=== PATIENT | female | born 1995 | race Caucasian/White ===

== ENCOUNTER → 2018-03-01 | Outpatient (CLI) | payer BC, OTHER ==
[2018-03-01 18:12] LABS: CONTROL LINE HCG INT CTR LINE PRESENT; HCG, SERUM QUALITATIVE NEGATIVE (NEGATIVE)
== END ==
LOC: M LAB 17:38
DX: N92.6 Irregular menstruation, unspecified (principal)
CPT/HCPCS: 84703

== ENCOUNTER 2018-07-05 13:51 | Emergency (ER) | payer BC, OTHER ==
[~2018-07-05] VITALS: Ht 165.1 cm; Wt 53.9 kg
[2018-07-05 13:51] VITALS: BP 133/80
[2018-07-05] MEDS ORDERED: MICR1TAB18 PO (13:58)
--- NOTE | 2018-07-05 15:15 | REP ---
Right wrist: Four views. History: Right wrist pain. Findings: Four views of the right wrist demonstrate a benign bone island in the distal radius. Overall mineralization pattern is normal. No fracture or subluxation is seen. Impression: No acute bony abnormality. Electronically Signed by Car Romero MD 07/05/2018 03:15 P
[2018-07-05] MEDS ORDERED: IBUP-1022 PO (15:49)
== END 2018-07-05 16:00 | disposition home or self-care (01) ==
LOC: M ED 13:51
DX: S63.501A Unspecified sprain of right wrist, initial encounter (principal); X50.0XXA Overexertion from strenuous movement or load, initial encounter; Y92.39 Other specified sports and athletic area as the place of occurrence of the external cause; Y93.B9 Activity, other involving muscle strengthening exercises; Z79.3 Long term (current) use of hormonal contraceptives

== ENCOUNTER → 2018-09-07 | Outpatient (REF) | payer OTHER ==
[~2018-09-07] MED LIST: IBUP-1022 PO; MICR1TAB18 PO
[2018-09-07 10:27] LABS: URINE PREG TEST NEGATIVE (NEGATIVE)
[2018-09-07 10:30] LABS: APPEARANCE, URINE HAZY (CLEAR); BACTERIA, URINE AUTO 1+ (NEGATIVE); BILIRUBIN, URINE AUTO NEGATIVE (NEGATIVE); BLOOD, URINE BLOOD NEGATIVE (NEGATIVE); COLOR, URINE YELLOW (YELLOW); GLUCOSE, URINE (UA) AUTO 1+ mg/dL (NEGATIVE); KETONE, URINE AUTO NEGATIVE (NEGATIVE); LEUKOCYTE ESTERASE, URINE AUTO NEGATIVE (NEGATIVE); MUCUS, URINE SMALL (NEGATIVE); NITRITE, URINE AUTO NEGATIVE (NEGATIVE); PROTEIN, URINE AUTO NEGATIVE (NEGATIVE); RBC, URINE AUTO 2 /HPF (0-3); SPECIFIC GRAVITY URINE AUTO 1.025 (1.002-1.035); SQUAMOUS EPITHELIAL CELL UR AU 9 /HPF (0-6); UROBILINOGEN, URINE AUTO 0.2 mg/dL (0.0-2.0); WBC, URINE AUTO 3 /HPF (0-3)
== END ==
LOC: M LAB REF 09:59
PROVIDERS: ATTEND Nurse Practitioner Women's Health
DX: R35.0 Frequency of micturition (principal); N92.6 Irregular menstruation, unspecified

== ENCOUNTER → 2018-09-14 | Outpatient (CLI) | payer BC, OTHER ==
[2018-09-14 10:29] LABS: HEMOGLOBIN A1c 5.2 %
== END ==
LOC: M LAB 09:31
DX: R81 Glycosuria (principal)

== ENCOUNTER → 2018-09-17 | Outpatient (CLI) | payer BC, OTHER ==
[2018-09-17 08:50] LABS: CHOLESTEROL RISK RATIO 2.887 (<5)
== END ==
LOC: M LAB 07:39
DX: Z00.00 Encounter for general adult medical examination without abnormal findings (principal)

== ENCOUNTER → 2019-01-28 | Outpatient (REF) | payer BC, OTHER ==
[~2019-01-28] MED LIST changes: +CETI5SOL3 PO; +CHOL100029 PO
[2019-01-28 13:45] LABS: APPEARANCE, URINE CLEAR (CLEAR); BACTERIA, URINE AUTO 1+ (NEGATIVE); BILIRUBIN, URINE AUTO NEGATIVE (NEGATIVE); BLOOD, URINE BLOOD 1+ (NEGATIVE); COLOR, URINE STRAW (YELLOW); GLUCOSE, URINE (UA) AUTO NEGATIVE (NEGATIVE); KETONE, URINE AUTO NEGATIVE (NEGATIVE); LEUKOCYTE ESTERASE, URINE AUTO NEGATIVE (NEGATIVE); NITRITE, URINE AUTO NEGATIVE (NEGATIVE); PROTEIN, URINE AUTO NEGATIVE (NEGATIVE); RBC, URINE AUTO 1 /HPF (0-3); SPECIFIC GRAVITY URINE AUTO 1.004 (1.002-1.035); SQUAMOUS EPITHELIAL CELL UR AU 0 /HPF (0-6); UROBILINOGEN, URINE AUTO 0.2 mg/dL (0.0-2.0); WBC, URINE AUTO 14 /HPF (0-3)
== END ==
LOC: M LAB REF 12:12
PROVIDERS: ATTEND Nurse Practitioner Women's Health
DX: R30.0 Dysuria (principal)

== ENCOUNTER 2019-01-30 15:14 | Emergency (ER) | payer BC, OTHER ==
[~2019-01-30] VITALS: Ht 165.1 cm; Wt 53.2 kg
[~2019-01-30 15:14] MED LIST changes: -CETI5SOL3 PO; -CHOL100029 PO
[2019-01-30] MEDS ORDERED: CHOL100029 PO (15:52)
[2019-01-30] MEDS ORDERED: CETI5SOL3 PO (15:52)
[2019-01-30 17:00] VITALS: BP 130/94
== END 2019-01-30 17:07 | disposition home or self-care (01) ==
LOC: M ED 15:14
DX: R31.29 Other microscopic hematuria (principal); Z79.899 Other long term (current) drug therapy; Z79.3 Long term (current) use of hormonal contraceptives

== ENCOUNTER 2019-02-07 09:58 | Emergency (ER) | payer OTHER, BC ==
[~2019-02-07] VITALS: Ht 165.1 cm; Wt 54.5 kg
[~2019-02-07 09:58] MED LIST changes: +CETI5SOL3 PO; +CHOL100029 PO
[2019-02-07] MEDS ORDERED: IBUPROFEN 400 MG TAB PO ONE (10:45)
[2019-02-07 11:29] VITALS: BP 124/85
== END 2019-02-07 11:30 | disposition home or self-care (01) ==
LOC: M ED 09:58
DX: S46.811A Strain of other muscles, fascia and tendons at shoulder and upper arm level, right arm, initial encounter (principal); W22.8XXA Striking against or struck by other objects, initial encounter; Y92.89 Other specified places as the place of occurrence of the external cause; Y99.0 Civilian activity done for income or pay; I47.1 Supraventricular tachycardia; J30.2 Other seasonal allergic rhinitis; Z79.899 Other long term (current) drug therapy; Z79.3 Long term (current) use of hormonal contraceptives

== ENCOUNTER → 2019-05-07 | Outpatient (CLI) | payer BC, OTHER ==
[2019-05-07 15:19] LABS: HCG, SERUM QUALITATIVE NEGATIVE (NEGATIVE)
== END ==
LOC: M LAB 14:15
PROVIDERS: ATTEND Nurse Practitioner Women's Health
DX: N92.6 Irregular menstruation, unspecified (principal)

== ENCOUNTER → 2020-07-27 | Outpatient (CLI) | payer BC, OTHER ==
--- NOTE | 2020-07-28 08:19 | REP ---
INDICATION: LUMBAR RADICULOPATHY. COMPARISON: None. TECHNIQUE: Sagittal T1, T2, STIR images obtained. Axial T1 and T2 weighted images of the lumbar spine obtained. FINDINGS: On the sagittal T2 weighted images, there is only minimal degenerative disc disease. Vertebral heights and disc heights are overall preserved. No malalignments. Conus ends normally at L1 level. On the sagittal imaging, no significant canal stenosis is noted. No evidence of disc herniation. On the STIR images, no significant stir signal abnormality to suggest soft tissue or ligamentous injury. IMPRESSION: No acute findings. No significant canal or foraminal stenosis. Minimal degenerative disc disease. No evidence of a disc herniation. <Electronically signed by Brian Moreno > 07/28/20 0815
== END ==
LOC: M RAD 16:06
PROVIDERS: ATTEND Chiropractor
DX: M54.41 Lumbago with sciatica, right side (principal); M99.03 Segmental and somatic dysfunction of lumbar region

== ENCOUNTER 2020-10-26 10:46 | Emergency (ER) | payer BC, OTHER ==
[~2020-10-26] VITALS: Ht 165.1 cm; Wt 55.7 kg
[2020-10-26 12:17] LABS: BASO % 0.3 % (0.0-1.0); EOS # 0.1 10^3/uL (0.0-0.5); EOS % 0.8 % (0.0-3.0); HEMATOCRIT 43.9 % (36.0-47.0); HEMOGLOBIN 14.7 g/dl (12.0-15.5); LYMPH # 2.2 10^3/uL (1.5-5.0); LYMPH % 36.1 % (24.0-44.0); MEAN CORPUSCULAR HEMOGLOBIN 27.9 pg (27.0-33.0); MEAN CORPUSCULAR HGB CONC 33.5 g/dl (32.0-36.5); MEAN CORPUSCULAR VOLUME 83.3 fl (80.0-96.0); MONO # 0.5 10^3/uL (0.0-0.8); MONO % 8.1 % (2.0-8.0); NEUTROPHILS # 3.2 10^3/uL (1.5-8.5); NEUTROPHILS % 54.4 % (36.0-66.0); PLATELET COUNT, AUTOMATED 263 10^3/uL (150-450); RED BLOOD COUNT 5.27 10^6/uL (4.00-5.40)
[2020-10-26 12:52] LABS: HCG, SERUM QUALITATIVE NEGATIVE (NEGATIVE)
[2020-10-26 12:55] LABS: ALBUMIN 4.6 GM/DL (3.2-5.2); ALT/SGPT 28 U/L (12-78); BILIRUBIN,DIRECT 0.1 MG/DL (0.0-0.2); BILIRUBIN,TOTAL 0.5 MG/DL (0.2-1.0); BLOOD UREA NITROGEN 10 MG/DL (7-18); CALCIUM LEVEL 9.7 MG/DL (8.5-10.1); CARBON DIOXIDE LEVEL 30 MEQ/L (21-32); CHLORIDE LEVEL 104 MEQ/L (98-107); CK-MB VALUE MASS < 1.0 NG/ML (<3.6); CPK CREATINE PHOSPHOKINASE 93 U/L (26-192); CREATININE FOR GFR 0.58 MG/DL (0.55-1.30); FREE T4 1.14 NG/DL (0.76-1.46); GLOMERULAR FILTRATION RATE > 60.0 (>60); GLUCOSE, FASTING 94 MG/DL (70-100); MAGNESIUM LEVEL 2.3 MG/DL (1.8-2.4); MB/CK RELATIVE INDEX 1.08 (< OR =4); PHOSPHORUS LEVEL 3.1 MG/DL (2.5-4.9); POTASSIUM SERUM 3.7 MEQ/L (3.5-5.1); SODIUM LEVEL 141 MEQ/L (136-145); THYROID STIMULATING HORMONE 0.823 uIU/ML (0.358-3.740); TOTAL PROTEIN 8.1 GM/DL (6.4-8.2); TROPONIN I < 0.02 NG/ML (< 0.10)
[2020-10-26 15:31] VITALS: BP 116/72
== END 2020-10-26 15:37 | disposition home or self-care (01) ==
LOC: M ED 10:46
DX: R00.2 Palpitations (principal); Z79.899 Other long term (current) drug therapy

== ENCOUNTER 2021-02-04 07:08 | Emergency (ER) | payer BC, OTHER ==
[~2021-02-04] VITALS: Ht 165.1 cm; Wt 54.5 kg
--- OUTSIDE RECORDS SUMMARY | 2021-02-04 07:12 | CCD | Continuity of Care Document ---
Author Author Holter/Event/Telemetry, Daysi Khalil Organization Unknown Address [address] [facility], [facility] [place] [address] Phone [phone] Care Team Providers Care Affiliate Marketing Specialist Name Role Phone Gretel Ybarra Agapito FARIA AUTM [phone] Anna Voss MD AUTM [phone] Problems Active Problems Provider Date Palpitations Dave Allred MD Onset: 11/25/2020 Paroxysmal supraventricular tachycardia Dave Allred MD Onset: 11/25/2020 Social History Type Date Description Comments Sex Unknown ETOH Use Rarely consumes alcohol Tobacco Use Start: Unknown Patient has never smoked Smoking Status Reviewed: 11/25/20 Patient has never smoked Exercise Type/Frequency Walks daily 1-2 mile s Exercise Limitations Joint Pain right knee Allergies, Adverse Reactions, Alerts Description No Known Drug Allergies Medications Active Medications SIG Qnty Indications Ordering Provide r Date Vitamin D 125mcg (5000 Ut) Capsule s 1 by mouth daily Unknown 11/24/2020 Osteo Bi-Flex Advanced Triple Strength Tablets 1 by mouth daily Unknown 11/24/2020 19 Tablets 1 by mouth every day Unknown 11/24/2020 Hair/Skin/Nails Capsules 1 by mouth daily Unknown 11/24/2020 Melatonin 10mg Capsules 1 by mouth once daily at bedtime as needed Unknown 11/24 Cetirizine HCL 10mg Tablets 1 by mouth every day Unknown 11/24/2020 Ashwagandha 500mg Capsules 1 by mouth once weekly Unknown 11/24/2020 Immunizations Description No Information Available Vital Signs Date Vital Result Comment 11/25/2020 8:11am Weight 119.00 lb Height 65 inches 5'5" BMI (Body Mass Index) 19.8 kg/m2 Heart Rate 83 /min BP Systolic Sitting 112 mmHg Omron, adult cuff/Ra BP Diastolic Sitting 71 mmHg Omron, adult cuff/R a Results Test Acquired Date Facility Test Result H/L Range Note CMP 10/26/2020 [facility] - not interfaced (315)- - Albumin Serum/Plasma 4.6 Alt - SGPT 28 Calcium Ser/Plasma Mass/Vol 9.7 Carbon Dioxide Ser/Plasm 30 Chloride Serum/Plasma 104 Alkaline Phosphatase 77 Potassium 3.7 Protein Total 8.1 Sodium 141 Ast - Sgot 22 BUN - Urea Nitrogen 10 Glucose 96 70-100 Creatinine For GFR 0.58 CPK & CPK MB 10/26/2020 [facility] - not interfaced (315)- - CPK 93 CPK-MB <1.08 Laboratory test finding 10/26/2020 [facility] - not interf aced (315)- - Magnesium Level 2.3 1.8-2.4 Troponin <0.02 Thyroid Stimulating Hormone 0.823 Free T4 1.14 CBC without Differential 10/26/2020 [facility] - not inter faced (315)- - White Blood Count 6.0 4.0-10.0 Red Blood Count 5.27 4.00-5.40 Platelets 263 150-450 Hemoglobin 14.7 Hematocrit 43.9 CBC without Differential 10/14/2020 [facility] (315)- - White Blood Count 5.80 4.3-10.9 Red Blood Count 4.76 4.70-6.20 Platelets 257 130-400 Hemoglobin 13.4 13.0-17.0 Hematocrit 39.2 39.0-50.0 Laboratory test finding 10/14/2020 [facility] (315)- - Thyroid Stimulating Hormone 0.720 Lipid Profile/Cardiac Risk Pro 10/14/2020 [facility] (315)- - Triglycerides 47 Cholesterol 3.15 Low 120-200 HDL 47 40-60 LDL Cholesterol 87.0 Chol/HDL Ratio -- BMP 10/14/2020 [facility] (315)- - Calcium Ser/Plasma Mass/Vol 9.6 Sodium 142 Carbon Dioxide Ser/Plasm 30.0 Chloride Serum/Plasma 104 Potassium 3.80 Glucose 90 70-100 Blood Urea Nitrogen 6 5-21 Creatinine 0.72 0.6-1.5 G F R 117 Procedures Date Code Description Status 12/25/2020 97853 Multi Event Recorder Interpretat ion Completed 12/25/2020 07860 Multi Event Recorder Hookup Comp leted 11/25/2020 05137 Office/Outpatient New Moderate M DM 45-59 Minutes Completed 11/25/2020 97004 ECG 12-Lead Completed Medical Devices Description No Information Available Encounters Type Date Location Provider Dx Diagnosis Office Visit 11/25/2020 8:00a Main Office Dave Allred MD I47.1 Supraventricular tachycardia R00.2 Palpitations Assessments Date Code Description Provider 12/25/2020 R00.2 Palpitations Holter/Event/Tel emetry 11/25/2020 I47.1 Supraventricular tachycardia Deven marilee Allred MD 11/25/2020 R00.2 Palpitations Dave Allred MD Plan of Treatment Future Appointment(s):* 02/11/2021 9:00 am - ECHO at Main Office 11/25/2020 - Dave Allred MD* I47.1 Supraventricular tachycardia* New Xrays:* US Echocardiogram Transthoracic W Doppler And Color Flow, Scheduled: 02/11/21 * Referral:* Anna Voss MD, Cardiac Electrophyslgy * Recommendations:* Patient was encouraged to purchase [employer] to record episodes of palpitations on her own. Further evaluation with a 30 day event monitor. Further evaluation with an echocardiogram Doppler. PSVT was explained to the patient. Electrophysiology study and RF ablation of PSVT was explained to the patient. The probability of cure of PSVT with RF ablation was "the patient as 95-9 9% depending on which type of PSVT is present. Patient was agreeable to be seen by rn correctional with the intent of EPS +/- RF ablation. She was referred to rn correctional Dr. Anna Voss in [place]. She was encouraged to decrease caffeine intake. * R00.2 Palpitations * All * Follow up:* Further follow-up, if any, depending upon results of cardiac testing. Functional Status Functional Condition Comment Date Status Independent with all ADL's Activ e Mental Status Description No Information Available Referrals Refer to Reason for Referral Status Appt Date Anna Voss MD 25 yo woman with documented PSVT since 14 yo. Please consider EPS/RFA. Thanks!! Closed [facility] [address] [place] [address] [phone]
--- OUTSIDE RECORDS SUMMARY | 2021-02-04 07:12 | CCD | Continuity of Care Document ---
Author Author Holter/Event/Telemetry, Daysi Khalil Organization Unknown Address [address] [facility], [facility] [place] [address] Phone [phone] Care Team Providers Care Tap Builder Name Role Phone Gretel Ybarra Agapito FARIA AUTM [phone] Anna Voss MD AUTM [phone] Problems Active Problems Provider Date Palpitations Dave [...] Test Result H/L Range Note CMP 10/26/2020 [facility] - not interfaced (315)- - Albumin Serum/Plasma 4.6 Alt - SGPT 28 Calcium Ser/Plasma Mass/Vol 9.7 Carbon Dioxide Ser/Plasm 30 Chloride Serum/Plasma 104 Alkaline Phosphatase 77 Potassium 3.7 Protein Total 8.1 Sodium 141 Ast - Sgot 22 BUN - Urea Nitrogen 10 Glucose 96 70-100 Creatinine For GFR 0.58 CPK & CPK MB 10/26/2020 [facility] - not interfaced (315)- - CPK 93 CPK-MB <1.08 Laboratory test finding 10/26/2020 [facility] - not interf aced (315)- - Magnesium Level 2.3 1.8-2.4 Troponin <0.02 Thyroid Stimulating Hormone 0.823 Free T4 1.14 CBC without Differential 10/26/2020 [facility] - not inter faced (315)- - White [...] 117 Procedures Date Code Description Status 12/25/2020 46883 Multi Event Recorder Interpretat ion Completed 12/25/2020 19482 Multi Event Recorder Hookup Comp leted 11/25/2020 75859 Office/Outpatient New Moderate M DM 45-59 Minutes Completed 11/25/2020 94153 ECG 12-Lead Completed Medical Devices Description No Information Available Encounters Type Date Location Provider Dx Diagnosis Office Visit 11/25/2020 8:00a Main Office Dave Allred MD I47.1 Supraventricular tachycardia R00.2 Palpitations Assessments Date Code Description Provider 12/25/2020 R00.2 Palpitations Holter/Event/Tel emetry 11/25/2020 I47.1 Supraventricular tachycardia Deven marilee Alrled MD 11/25/2020 R00.2 Palpitations Dave Allred MD [...] Patient was agreeable to be seen by benefits consultant with the intent of EPS +/- RF ablation. She was referred to benefits consultant Dr. Anna Voss in [place]. She was encouraged to decrease caffeine intake. [...] 14 yo. Please consider EPS/RFA. Thanks!! Closed [facility] [address] [place] [address] [phone]
--- OUTSIDE RECORDS SUMMARY | 2021-02-04 07:13 | CCD ---
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 PlM5YgGK07mHbqazRhYShrFF9YWT0iEJZxKRDZHY6SsDCfvO8wfzCbNVIwDHAYRxKeI55peBMaGYJlYS Q8QIWlEq1EGACzU4RokmWebMtmumAbEDTrNEQRMQ3BDSixxhFtxAZwyZbePW56nTcoMU4FHa1ULgNrIA 6cyi1JcUGtUt7PIMUzOl7STVXlMJDqOYZlCLC1MFXr HyItWQdkFARaESJkNZR2NKTkLKHsPM5RCoUkWQKnAABpFTgbIKPzOHOoqn4QCGKmRSRkDpfjJuIgKUJb KVLpIHhsBHVlTLSxWLhqKTUwRVPuJM9BGfZeEQQuMQS8ZgCpHYIyCFVpni0KMQIrBXXeEsa9UnAnEAWv ZJHfSCroOSGgNDS5YqV8NKXoSFReNF1HPkFsONBgGG H6BRokPPWcXCQsin4CVPFwMBMeOvR5GfRlXTEgDDIdMRbcHSFtFRR6UAy4SIPrVJJxSU1CCuXkQYIcLN t4NvPkFAXmSDGiur6VCBJiXTIsQGFbGkDgVXZqGQGxKZkoDPIwLQL2SxT0CPJkGHBlXD5JHpCkACMbPC CrCmPuWEAaBYEowv1KWJSsPLTxWPM1XfAfPGQkVKJo DIibRYVuTLFeWTF4XEAnHWVlAG6GSoKkVVTkUQTvEbtkZPStLVOqtu9CBDQyYZWgNwG9NmFkUAEmHVLd JYxgUURjEMR8FFgfAHDvZFHhFC7ZTfHkJYImNAasNRKsJOPbNSHzjh6KOUKtQQNaLVDiWiYbAUYyHBNb CUihWHMiTYY5YmGePNDzNCBmSU4CSaDkVZaaGPZBAj n3AKcdE7v5KEBvXt9MQ3Efn0ZqBxXnRYEGLAjyNO3iiiPaLFAdPf9OJ1zXAnb4THT7KxOkQdQjNNVrHr P4VHMnZfYfKlZbALn9JWI6Hj6eDLEbCvwbUULeTnS8BfBwEOn8VGT3JUO1NfE6MVC9RIsvLwPzJW0WPm 3FKpE4ICT7hGOzJo3HCVx0HJOSScRtVD0FZZa= ID Date Data Source [id number] 02/01/2021 06:36:34 AM EDT [facility] NT INFORMATIONPatient MRN Name Date of Age Gend*PT [id number] Raleigh Dexter 1995 25 years F HOPPT Location Admission Date/Time Visit ID Attending [id number] 02/01/21 0607 --- Anna Voss MD([id number]) EPI ID CSN Admitting Provider [id number] Anna Voss MD([id number]) History and PhysicalPatient Name: Raleigh DexterDOB: 1995The patient has a history of SVT who presents for SVT qkbbsdqu04/18/2021ast Medical History:Diagnosis Date PSVT (paroxysmal supraventricular tachycardia)Past Surgical History:Procedure Laterality Date TONSILLECTOMY TUMOR REMOVAL precancerous tumors removed from foreheadNo medications prior to admission.ALLERGIES/SENSITIVITIES: Patient has no known drug allergies.Physical ExamGeneral: NADHEENT: NC/ATNeck: JVP FlatLungs: CTAHeart: [id number]: This is a 25 years female With a history of SVT who now presentsfor ablation. The difference between Reentrant tachycardia versus anectopic atrial tachycardia was also discussed. The possibility that thetachycardia may not be able to be ablated at this time was discussed. Procedurewas explained in detail. The need for sedation was also discussed. The risksincluding but not limited to vascular injury, perforation, pneumothorax,infection, tamponade, hematoma formation, stroke, respiratory failure, CHB anddeath were all explained. The patient is agreeable to proceed.Signature: Anna Voss MD, [facility], RSCardiac Electrophysiology and Arrhythmia ServiceDate: February 01, 2021Time: 6:36 AMThis document or parts of this document, were dictated using Demibook[employer]ware. A reasonable attempt at proofreading has been made to minimize errors.Please call with any questions or corrections. Name Value Range Interpretation Code Description Data Kelly rce(s) Supporting Document(s) ID Date Data Source [id number] 02/01/2021 06:49:16 AM EDT [facility] elena DWYER Name Value Range Interpretation Code Description Data Kelly rce(s) Supporting Document(s) POC [facility] <5.0 IU/L [facility] [place] INTERPRETATION:<5.0 NEGATIVE5.0- 25.0 INDETERMINATE>25.0 POSITIVELEVELS BETWEEN 5 AND 25 IU/L MAY INDICATEEARLY AND SHOULD BE REPEATED GARY BLOOD SAMPLE AFTER 48 HOURS.PERFORMED BY [facility] CLINICAL STA[facility] ID Date Data Source [id number] 01/27/2021 06:30:00 AM EDT [place] Name Value Range Interpretation Code Description Data Kelly rce(s) Supporting Document(s) SARS coronavirus 2 RNA [Presence] in Res piratory specimen by EDWIN with probe detection NOT DETECTED [facility] This lab was reported by [facility]. ID Date Data Source [id number] 01/28/2021 07:07:06 AM EDT [facility] [place] [facility] [place] Name Value Range Interpretation Code Description Data Kelly rce(s) Supporting Document(s) SPECIMEN DESCRIPTION [facility] [place] COVID 19 RESULT (NDET) [facility] [place] f [place] NEGATIVE COVID-19 RESULTS DONOT PRECLUDE COVID-2019 INFECTION ANDSHOULD NOT BE USED THE SOLE BASISFOR PATIENT MANAGEMENT DECISIONS. COMMENT [facility] THE [place] FDA HAS MADE THIS TEST AVAILABL EUNDER AN EMERGENCY USE AUTHORIZATION(EUA) FOR THE DETECTION AND/OR DIAGNOSISOF THE VIRUS THAT CAUSES COVID-19.THIS ASSAY AMPLIFIES AND DETECTS TARGETDNA USING HAND ENDBAND CUTTER- MEDIATEDAMPLIFICATIONTESTING PERFORMED ON Jumpstarter FIRST TEST [facility] [place] [facility] [place] SYMPTOMATIC [facility] of [place] Y DATE OF SYMPT ONSET [facility] [place] HOSPITALIZED [facility] [place] of [facility] ICU [facility] [place] [place] CONGREGATE CARE SET [facility] [place] [facility] [place] [facility] [place] ID Date Data Source [id number] 12/16/2020 01:57:49 PM EDT [facility] INFORMATIONPatient MRN Name Date of Age Gend*PT [id number] Raleigh Dexter 1995 25 years F ---PT Location Admission Date/Time Visit ID Attending Provider --- --- --- --- EPI ID CSN Admitting Provider [id number] ---[facility] [id number] [facility], [address] (First Floor)[place], [place] [address]Yu.: Fax: Jatient: Raleigh Dexter : 1995Date: 12/16/20CARDIOLOGY ELECTROPHYSIOLOGY TELEMEDICINE CONSULTPatient was identified by name and date of .Verbal consent was obtained from the patient for this telemedicine visit.Patient is aware of the risks, limitations, and benefits of a telemedicinevisit.This telemedicine assessment was conducted remotely with the assistance ofSKINNYprice communication technology. Telephone Only Codes [id number]: 21-30 minutesof medical discussion: Telephone Only .Subjective:I was asked by Dr. Elizabeth to consult on this 25 years female with SVTHISTORY OF PRESENT ILLNESS: Patient is a 25-year-old female with a history ofSVT which started at the age of 14. For many years the patient was placed on abeta-elvis without much effect. She states that the beta-elvis made hertired and did not really affect her SVT very well. She was having probably oneepisode of SVT a year recently however the frequency of SVTs has increased. Herepisodes last anywhere from 15 minutes to "hours "in duration. These typicallyoccur with exercise and she has palpitations associated with near syncope. Shedenies any shortness of breath. She denies any chest pain or syncope.Past medical history1. SVTFAMILY HISTORY: NoncontributorySOCIAL HISTORY: Patient is . She is currently in nursing schoolREVIEW OF SYSTEMS: Constitutional: Positive near syncope. Denies fever, chills,weight loss or gain. Eyes: Denies blindness. Cardiovascular: Positivepalpitations. Respiratory: Denies shortness of breath and dyspnea on exertion.GI: Denies abdominal pain, nausea or vomiting. : Denies dysuria or hematuria.Musculoskeletal: Negative lower extremity edema. Integumentary: Denies rash.Neurologic: Denies seizures. Psychiatric: Denies depression or an xiety.Hematologic: Denies anemia.No current outpatient medications on file.ALLERGIES: has no allergies on file.PREVIOUSLY USED ANTI ARRHYTHMIC DRUGS: NadololPOORLY TOLERATED MEDICATIONS: NadololObjective:PHYSICAL EXAMINATION: Deferred due to Telemedicine encounterSTUDIES REVIEWED: Referral recordsEKG: Deferred due to telemedicine encounter.Assessment/Plan:ASSESSMENT/PLAN: This is a 25 years female With a history of SVT. I had a longdiscussion with the patient regarding the anatomical and physiological basis ofAV node reentry, orthodromic AV reciprocating tachycardias, and focal atrialtachycardias. Based on the age of onset there is an 80% chance the patient'stachycardia represents an Orthodromic AV Reciprocating Tachycardia utilizing aconcealed accessory pathway, a 15% chance this represents typical AV nodalreentrant tachycardia, and a 5% chance this represents a focal atrialtachycardia. During our visit, the patient and I had a comprehensive discussionregarding arrhythmia management using principles of shared decision making.This included a discussion of antiarrhythmic medications including Class 1a,Class 1C, and Class III agents as well as both Class II and IV agents. Ireviewed the potentially life-threatening side effects of these medications,including but not limited to fatal tachyarrhythmias, bradycardia, hypotension,heart block, pulmonary toxicity, liver toxicity as well as thyroidabnormalities. We also reviewed the required monitoring of these medications.In addition we reviewed EP guided therapy, including the potential benefits andrisks of catheter ablation. These risks in clude but are not limited to ,myocardial infarction, stroke, cardiac perforation, vascular injury, hematomaformation, complete heart block, need for emergent open heart surgery,pneumothorax and tamponade. We discussed clinical observation with no therapy.I explained to the patient that the natural history of SVTs is for worsening ofsymptoms over the course of a lifetime. After reviewing all the options, thepatient clearly understands the issues related to our discussion. In additionwe did discuss the possibility that if this was a concealed accessory pathwaythe most common location is left free wall. I discussed the differentapproaches to her left free wall ablation, retrograde versus transseptal. Therisks of both were discussed with the patient and she fully understands.At this point the patient would like to proceed with ablation and if necessary atransseptal approach. She will be scheduled on an elective basisThis document or parts of this document, were dictated using [employer] Groupware. A reasonable attempt at proofreading has been made to minimize errors.Please call with any questions or corrections.I have spent 25 minutes with the patient, counseling/coordinating the patient'scare. I discussed the diagnosis of SVT and discussed Management option risksand benefitsFollow Up EP/RFSignature: Anna Voss MD, [facility], RSCardiac Electrophysiology and Arrhythmia ServiceDate: December 16, 2020Time: 1:47 PMThis document or parts of this document, were dictated using Demibooksware. A reasonable attempt at proofreading has been made to minimize errors.Please call with any questions or corrections. Name Value Range Interpretation Code Description Data Kelly rce(s) Supporting Document(s) ID Date Data Source [id number] 10/26/2020 01:11:00 PM EDT [facility] ([facility]) Name Value Range Interpretation Code Description Data Kelly rce(s) Supporting Document(s) Red Blood Count 5.27 4.00-5.40 [facility] ([facility]) White Blood Count 6.0 4.0-10.0 [facility] ([facility] Hemoglobin 14.7 [facility] ([facility]) Platelets 263 150-450 [facility] Hematocrit 43.9 [facility] (Card[facility]) ID Date Data Source [id number] 10/26/2020 01:11:00 PM EDT [facility] ([facility]) Name Value Range Interpretation Code Description Data Kelly rce(s) Supporting Document(s) Magnesium Level 2.3 1.8-2.4 [facility] ([facility]) Troponin Laboratory test result [facility] ([facility]) Thyroid Stimulating Hormone 0.823 ME [facility] ([facility]) Free T4 1.14 [facility] ([facility]) ID Date Data Source [id number] 10/26/2020 01:11:00 PM EDT [facility] ([facility]) Name Value Range Interpretation Code Description Data Kelly rce(s) Supporting Document(s) CPK-MB Laboratory test result [facility] ([facility]) Creatine kinase [Enzymatic activity/volume] in Serum or Plasma 93 [facility] ([facility]) ID Date Data Source [id number] 10/26/2020 01:11:00 PM EDT [facility] ([facility]) Name Value Range Interpretation Code Description Data Kelly rce(s) Supporting Document(s) Calcium [Mass/volume] in Serum or Plasma 9.7 [facility] ([facility]) Albumin [Mass/volume] in Serum or Plasma 4.6 [facility] ([facility]) Alanine aminotransferase [Enzymatic activity/volume] in Serum or Pl asma 28 [facility] ([facility]) Carbon dioxide, total [Moles/volume] in Serum or Plasma 30 [facility] ([facility]) Chloride [Moles/volume] in Serum or Plasma 104 [facility] ([facility]) Alkaline phosphatase [Enzymatic activity/volume] in Serum or Plasma 7 7 [facility] ([facility]) Potassium [Moles/volume] in Serum or Plasma 3.7 [facility] ([facility]) Aspartate aminotransferase [Enzymatic activity/volume] in Serum or Plasma 22 [facility] ([facility]) Protein [Mass/volume] in Serum or Plasma 8.1 [facility] ([facility]) Sodium 141 [facility] ([facility]) Urea nitrogen [Mass/volume] in Serum or Plasma 10 [facility] ([facility]) Glucose 96 70-100 [facility] ([facility]) Creatinine For GFR 0.58 [facility] (Car [facility]) ID Date Data Source [id number] 10/14/2020 08:37:00 AM EDT [facility] ([facility]) Name Value Range Interpretation Code Description Data Kelly rce(s) Supporting Document(s) Calcium [Mass/volume] in Serum or Plasma 9.6 [facility] ([facility]) Sodium 142 [facility] ([facility]) Chloride [Moles/volume] in Serum or Plasma 104 [facility] ([facility]) Carbon dioxide, total [Moles/volume] in Serum or Plasma 30.0 [facility] ([facility]) Glucose 90 70-100 [facility] ([facility]) Potassium [Moles/volume] in Serum or Plasma 3.80 [facility] ([facility]) Blood Urea Nitrogen 6 5-21 [facility] (Ca [facility]diology [facility]) Glomerular filtration rate/1.73 sq M.pre dicted [Volume Rate/Area] in Serum or Plasma by Creatinine-based formula (MDRD) 117 [facility] ([facility]) Creatinine 0.72 0.6-1.5 [facility] ([facility]) ID Date Data Source [id number] 10/14/2020 08:37:00 AM EDT [facility] Name Value Range Interpretation Code Description Data Kelly rce(s) Supporting Document(s) Cholesterol 3.15 120-200 [facility] ([facility]) HDL 47 40-60 [facility] Triglycerides 47 [facility] ([facility]) Cholesterol in LDL [Mass/volume] in Serum or Plasma by calculation 87 .0 [facility] ([facility]) Chol/HDL Ratio Laboratory [facility] ([facility]) ID Date Data Source [id number] 10/14/2020 08:37:00 AM EDT [facility] ([facility]) Name Value Range Interpretation Code Description Data Kelly rce(s) Supporting Document(s) Thyroid Stimulating Hormone 0.720 ME [facility] ([facility]) ID Date Data Source [id number] 10/14/2020 08:37:00 AM EDT [facility] ([facility]) Name Value Range Interpretation Code Description Data Kelly rce(s) Supporting Document(s) White Blood Count 5.80 4.3-10.9 [facility] ([facility]) Red Blood Count 4.76 4.70-6.20 [facility] ([facility]) Platelets 257 130-400 [facility] Hemoglobin 13.4 13.0-17.0 [facility] ([facility]) Hematocrit 39.2 39.0-50.0 [facility] ([facility]) ID Date Data Source [id number] 07/23/2020 06:39:00 PM EDT [facility] Name Value Range Interpretation Code Description Data Kelly rce(s) Supporting Document(s) SARS coronavirus 2 Ag Covid_negative [place] [facility] This lab was ordered by KATJA trujillo nd reported by [email or web address]. Procedure Social History Code Duration Value Status Description Data Source(s ) Smoking 11/25/2020 12:00:00 AM EDT Patient has never smoked co mpleted Patient has never smoked [facility] ([facility]) Vital Signs ID Date Data Source UNK Name Value Range Interpretation Code Description Data Source(s) Body height 65 [in_i] 65 [in_i] [facility] ([facility]) 5'5" Body mass index (BMI) [Ratio] 19.8 kg/m2 19.8 k g/m2 [facility] ([facility]) Heart rate 83 /min 83 /min [facility] ([facility]) Systolic blood pressure--sitting 112 mm[Hg] 112 mm[Hg] [facility] ([facility]) Omron, adult cuff/Ra Diastolic blood pressure--sitting 71 mm[Hg] 71 mm[Hg] [facility] ([facility]) Omron, adult cuff/Ra Body weight 119.00 [lb_av] 119.00 [lb_av] PANCHITO Dixon ([facility])
--- OUTSIDE RECORDS SUMMARY | 2021-02-04 07:13 | CCD | Continuity of Care Document ---
Author Organization Unknown Address Unknown Phone Unavailable Care Team Providers Care Real Estate Attorney Name Role Phone Carlos Centeno MD AUTM [phone] Gretel Ybarra AUTM [phone] Problems Active Problems Provider Date Paroxysmal supraventricular tachycardia Dave Allred MD Onset: 11/25/2020 Palpitations Dave Allred MD Onset: 11/25/2020 Social History Type Date Description Comments Sex Unknown ETOH Use Rarely consumes alcohol Tobacco Use Start: Unknown Patient has never smoked Exercise Type/Frequency Walks [...] 5'5" BMI (Body Mass Index) 19.8 kg/m2 Results Test Acquired Date Facility Test Result H/L Range Note CMP 10/26/2020 [facility] - not interfaced (532)- - Albumin Serum/Plasma 4.6 Alt - SGPT 28 Calcium Ser/Plasma Mass/Vol 9.7 Carbon Dioxide Ser/Plasm 30 Chloride Serum/Plasma 104 Alkaline Phosphatase 77 Potassium 3.7 Protein Total 8.1 Sodium 141 Ast - Sgot 22 BUN - Urea Nitrogen 10 Glucose 96 70-100 Creatinine For GFR 0.58 CPK & CPK MB 10/26/2020 [facility] - not interfaced (315)- - CPK 93 CPK-MB <1.08 Laboratory test finding 10/26/2020 [facility] - not interf aced (315)- - Magnesium Level 2.3 1.8-2.4 Troponin <0.02 Thyroid Stimulating Hormone 0.823 Free T4 1.14 CBC without Differential 10/26/2020 [facility] - not inter faced (315)- - [...] 0.72 0.6-1.5 G F R 117 Procedures Description No Information Available Medical Devices Description No Information Available Encounters Description No Information Available Assessments Date Code Description Provider 11/25/2020 R00.2 Palpitations Dave Allred MD 11/25/2020 I47.1 Supraventricular tachycardia Deven marilee Allred MD Plan of Treatment No Information Available Functional Status Functional Condition Comment Date Status Independent with all ADL's Activ e Mental Status Description No Information Available Referrals Description No Information Available
--- OUTSIDE RECORDS SUMMARY | 2021-02-04 07:13 | CCD | Continuity of Care Document ---
Author Organization Unknown Address Unknown Phone Unavailable Care Team Providers Care Bulb Sorter Name Role Phone Carlos Centeno MD AUT [phone] Problems Description No Information Available Social History Type Date Description Comments Sex Unknown Allergies, Adverse Reactions, Alerts Description No Information Available Medications Active Medications SIG Qnty Indications Ordering Provide r Date Vitamin D3 Ultra Strength 125mcg (5000 Ut) Capsules QHS Unknown Cetirizine HCL 10mg Tablets Q HS Gretel Ybarra, [employer] Immunizations Description No Information Available Vital Signs Description No Information Available Results Description No Information Available Procedures Description No Information Available Medical Devices Description No Information Available Encounters Description No Information Available Assessments Description No Information Available Plan of Treatment Future Appointment(s):* 11/25/2020 8:00 am - Dave Allred MD at Main Office Functional Status Description No Information Available Mental Status Description No Information Available Referrals Description No Information Available
--- OUTSIDE RECORDS SUMMARY | 2021-02-04 07:13 | CCD | Continuity of Care Document ---
Author Organization Unknown Address Unknown Phone Unavailable Care Team Providers Care Blending Machine Feeder Name Role Phone Carlos Centeno MD AUT [phone] Problems Description No Information Available Social History Type Date Description Comments Sex Unknown Allergies, Adverse Reactions, Alerts Description No Information Available Medications Active Medications SIG Qnty Indications Ordering Provide r Date Vitamin D3 Ultra Strength 125mcg (5000 Ut) Capsules QHS Unknown Cetirizine HCL 10mg Tablets Q HS Gretel Ybarra, ENGLISH TUTOR Norethindrone Acetate/Ethinyl Estradiol 1.5-30mg-mcg Tablets Daily 28tabs Unknown Immunizations Description No Information Available Vital Signs Description No Information Available Results Test Acquired Date Facility Test Result H/L Range Note CMP 10/26/2020 [facility] - not interfaced (315)- - Albumin Serum/Plasma 4.6 Alt - SGPT 28 Calcium Ser/Plasma Mass/Vol 9.7 Carbon Dioxide Ser/Plasm 30 Chloride Serum/Plasma 104 Alkaline Phosphatase 77 Potassium 3.7 Protein Total 8.1 Sodium 141 Ast - Sgot 22 BUN - Urea Nitrogen 10 Glucose 96 70-100 Creatinine For GFR 0.58 CPK & CPK MB 10/26/2020 [facility] - not interfaced (315)- - CPK 93 CPK-MB <1.08 Laboratory test finding 10/26/2020 [facility] - not interf aced (315)- - Magnesium Level 2.3 1.8-2.4 Troponin <0.02 Thyroid Stimulating Hormone 0.823 Free T4 1.14 CBC without Differential 10/26/2020 [facility] - not inter faced (315)- - White Blood Count 6.0 4.0-10.0 Red Blood Count 5.27 4.00-5.40 Platelets 263 150-450 Hemoglobin 14.7 Hematocrit 43.9 Procedures Description No Information Available Medical Devices Description No Information Available Encounters Description No Information Available Assessments Description No Information Available Plan of Treatment Future Appointment(s):* 11/25/2020 8:00 am - Dave Allred MD at Main Office Functional Status Description No Information Available Mental Status Description No Information Available Referrals Description No Information Available
--- OUTSIDE RECORDS SUMMARY | 2021-02-04 07:13 | CCD | Continuity of Care Document ---
Author Organization Unknown Address Unknown Phone Unavailable Care Team Providers Care Drywaller Name Role Phone Carlos Centeno MD AUT [phone] Problems Description No Information Available Social History Type Date Description Comments Sex Unknown Allergies, Adverse Reactions, Alerts Description No Information Available Medications Active Medications SIG Qnty Indications Ordering Provide r Date Vitamin D3 Ultra Strength 125mcg (5000 Ut) Capsules QHS Unknown Cetirizine HCL 10mg Tablets Q HS Gretel Ybarra, RN [facility] Immunizations Description No Information Available Vital Signs Description No Information Available Results Test Acquired Date Facility Test Result H/L Range Note CMP 10/26/2020 [facility] - not interfaced (315)- - Albumin Serum/Plasma 4.6 Alt - SGPT 28 Calcium Ser/Plasma Mass/Vol 9.7 Carbon Dioxide Ser/Plasm 30 Chloride Serum/Plasma 104 Alkaline Phosphatase 77 Potassium 3.7 Protein Total 8.1 Sodium 141 Ast - Sgot 22 BUN - Urea Nitrogen 10 Glucose 96 70-100 Creatinine For GFR 0.58 CPK & CPK MB 10/26/2020 [facility] - not interfaced (315)- - CPK 93 CPK-MB <1.08 Laboratory test finding 10/26/2020 [facility] - not interf aced (315)- - Magnesium Level 2.3 1.8-2.4 Troponin <0.02 Thyroid Stimulating Hormone 0.823 Free T4 1.14 CBC without Differential 10/26/2020 [facility] - not inter faced (315)- - [...]
--- OUTSIDE RECORDS SUMMARY | 2021-02-04 07:13 | CCD | Continuity of Care Document ---
Author Author Kiera ALLRED MD Organization Unknown Address [address] [place] [address], [facility] [place] [address] Phone [phone] Care Team Providers Care Auricular Acupuncturist Name Role Phone Carlos Centeno MD AUTM [phone] Gretel Ybarra AUTM [phone] Anna Voss MD AUTM [phone] Problems Active Problems Provider Date Palpitations Dave [...] Test Result H/L Range Note CMP 10/26/2020 [facility] - not interfaced (315)- - Albumin Serum/Plasma 4.6 Alt - SGPT 28 Calcium Ser/Plasma Mass/Vol 9.7 Carbon Dioxide Ser/Plasm 30 Chloride Serum/Plasma 104 Alkaline Phosphatase 77 Potassium 3.7 Protein Total 8.1 Sodium 141 Ast - Sgot 22 BUN - Urea Nitrogen 10 Glucose 96 70-100 Creatinine For GFR 0.58 CPK & CPK MB 10/26/2020 [facility] - not interfaced (315)- - CPK 93 CPK-MB <1.08 Laboratory test finding 10/26/2020 [facility] - not interf aced (315)- - Magnesium Level 2.3 1.8-2.4 Troponin <0.02 Thyroid Stimulating Hormone 0.823 Free T4 1.14 CBC without Differential 10/26/2020 [facility] - not inter faced (315)- - [...] R 117 Procedures Date Code Description Status 11/25/2020 09712 Office/Outpatient New Moderate M DM 45-59 Minutes Completed 11/25/2020 42749 ECG 12-Lead Completed Medical Devices Description No Information Available Encounters Type Date Location Provider Dx Diagnosis Office Visit 11/25/2020 8:00a Main Office Dave Allred MD R00.2 Palpitations I47.1 Supraventricular tachycardia Assessments Date Code Description Provider 11/25/2020 R00.2 Palpitations Dave Allred MD 11/25/2020 I47.1 Supraventricular tachycardia Deven marilee Allred MD Plan of Treatment Future Appointment(s):* 02/11/2021 9:00 am - ECHO at Main Office 11/25/2020 - Dave Allred MD* R00.2 Palpitations* New Orders:* Event Monitor, Ordered: 11/25/20 * I47.1 Supraventricular tachycardia* New Xrays:* US Echocardiogram Transthoracic W Doppler And Color Flow, Scheduled: 02/11/21 * Referral:* Anna Voss MD, Cardiac Electrophyslgy * All * Follow up:* Further follow-up, if any, depending upon results of cardiac testing. Functional Status Functional Condition Comment Date Status Independent with all ADL's Activ e Mental Status Description No Information Available Referrals Refer to Reason for Referral Status Appt Date Anna Voss MD 25 yo woman with documented PSVT since 14 yo. Please consider EPS/RFA. Thanks!! Created [facility] [address] [place] [address] [phone]
--- OUTSIDE RECORDS SUMMARY | 2021-02-04 07:13 | CCD | Continuity of Care Document ---
Author Author Kiera BAGLEY MD Organization Unknown Address [address] [place] [address], [place] [address] Phone [phone] Care Team Providers Care Bus Or Truck Garage Mechanic Name Role Phone Gretel Ybarra BEINVENIDO AUTM [phone] Anna Voss MD AUTM [phone] Problems Active Problems Provider Date Palpitations Dave Bagley MD Onset: 11/25/2020 Paroxysmal supraventricular tachycardia Dave Bagley MD Onset: 11/25/2020 Social History Type Date [...] Test Result H/L Range Note CMP 10/26/2020 [facility] - not interfaced (315)- - Albumin Serum/Plasma 4.6 Alt - SGPT 28 Calcium Ser/Plasma Mass/Vol 9.7 Carbon Dioxide Ser/Plasm 30 Chloride Serum/Plasma 104 Alkaline Phosphatase 77 Potassium 3.7 Protein Total 8.1 Sodium 141 Ast - Sgot 22 BUN - Urea Nitrogen 10 Glucose 96 70-100 Creatinine For GFR 0.58 CPK & CPK MB 10/26/2020 [facility] - not interfaced (315)- - CPK 93 CPK-MB <1.08 Laboratory test finding 10/26/2020 [facility] - not interf aced (315)- - Magnesium Level 2.3 1.8-2.4 Troponin <0.02 Thyroid Stimulating Hormone 0.823 Free T4 1.14 CBC without Differential 10/26/2020 [facility] - not inter faced (315)- [...] 117 Procedures Date Code Description Status 11/25/2020 42595 Office/Outpatient New Moderate M DM 45-59 Minutes Completed 11/25/2020 98876 ECG 12-Lead Completed Medical Devices Description No Information Available Encounters Type Date Location Provider Dx Diagnosis Office Visit 11/25/2020 8:00a Main Office Dave Bagley MD I47.1 Supraventricular tachycardia R00.2 Palpitations Assessments Date Code Description Provider 11/25/2020 I47.1 Supraventricular tachycardia Deven marilee Bagley MD 11/25/2020 R00.2 Palpitations Dave Bagley MD Plan of Treatment Future Appointment(s):* 02/11/2021 9:00 am - ECHO at Main Office 11/25/2020 - Dave Bagley MD* I47.1 Supraventricular tachycardia* New Xrays:* US [...] Patient was agreeable to be seen by grain farmworker with the intent of EPS +/- RF ablation. She was referred to grain farmworker Dr. Anna Voss in [place]. She was encouraged to decrease caffeine intake. * R00.2 Palpitations* New Orders:* Event Monitor, Ordered: 11/25/20 * All * Follow up:* Further follow-up, if any, depending upon results of cardiac testing. Functional Status Functional Condition Comment Date Status Independent with all ADL's Activ e Mental Status Description No Information Available Referrals Refer to Reason for Referral Status Appt Date Anna Voss MD 25 yo woman with documented PSVT since 14 yo. Please consider EPS/RFA. Thanks!! Created [facility] [address] [place] [address] [phone]
[2021-02-04] MEDS ORDERED: DOXY100T27 PO (07:48)
[2021-02-04] MEDS ORDERED: MULTTAB20 PO (07:49)
[2021-02-04 08:07] LABS: BASO % 0.3 % (0.0-1.0); EOS # 0.1 10^3/uL (0.0-0.5); HEMATOCRIT 39.7 % (36.0-47.0); HEMOGLOBIN 13.1 g/dl (12.0-15.5); LYMPH # 1.7 10^3/uL (1.5-5.0); LYMPH % 23.9 % (24.0-44.0); MEAN CORPUSCULAR HEMOGLOBIN 27.5 pg (27.0-33.0); MEAN CORPUSCULAR VOLUME 83.4 fl (80.0-96.0); MONO # 0.5 10^3/uL (0.0-0.8); MONO % 7.4 % (2.0-8.0); NEUTROPHILS # 4.9 10^3/uL (1.5-8.5); NEUTROPHILS % 67.1 % (36.0-66.0); PLATELET COUNT, AUTOMATED 214 10^3/uL (150-450); RED BLOOD COUNT 4.76 10^6/uL (4.00-5.40); WHITE BLOOD COUNT 7.2 10^3/uL (4.0-10.0)
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
[2021-02-04 08:35] LABS: BLOOD UREA NITROGEN 11 MG/DL (7-18); CALCIUM LEVEL 9.3 MG/DL (8.5-10.1); CARBON DIOXIDE LEVEL 30 MEQ/L (21-32); CHLORIDE LEVEL 105 MEQ/L (98-107); CPK CREATINE PHOSPHOKINASE 66 U/L (26-192); CREATININE FOR GFR 0.69 MG/DL (0.55-1.30); GLOMERULAR FILTRATION RATE > 60.0 (>60); GLUCOSE, FASTING 122 MG/DL (70-100); MAGNESIUM LEVEL 1.5 MG/DL (1.8-2.4); MB/CK RELATIVE INDEX 1.52 (< OR =4); POTASSIUM SERUM 3.1 MEQ/L (3.5-5.1); SODIUM LEVEL 140 MEQ/L (136-145); TROPONIN I 0.23 NG/ML (< 0.10)
[2021-02-04] MEDS ORDERED: POTASSIUM CHLORIDE 10MEQ SR TABLET PO ONE (09:15)
[2021-02-04] MEDS ORDERED: MAG SULF 1GM/100ML (MAG RUN) 1 GM in IV 1 EA IV ONE (09:15)
[2021-02-04 10:30] VITALS: BP 112/73
--- NOTE | 2021-02-04 19:03 | ECGEPIP ---
[facility] - ED Test Date: 2021-02-04 Pat Name: RALEIGH DEXTER Department: Room: - Gender: Female Rn Clinical Appeals: ED : 1995 Requested By: SAIMA Carmona Order Number: [id number] Reading MD: Carissa Earl Measurements Intervals [place] Rate: 91 P: 65 MD: 102 QRS: 72 QRSD: 86 T: -19 QT: 360 QTc: 442 Interpretive Statements Sinus rhythm with short MD Nonspecific T wave abnormality increased rate 10/26/20 Electronically Signed on 02-04-2021 19:03:16 EDT by Carissa Earl
== END 2021-02-04 10:49 | disposition home or self-care (01) ==
LOC: M ED 07:08
DX: E87.6 Hypokalemia (principal); E83.42 Hypomagnesemia; R00.2 Palpitations; Z98.890 Other specified postprocedural states; I48.91 Unspecified atrial fibrillation; Z79.899 Other long term (current) drug therapy
CPT/HCPCS: 80048; 82550; 82553; 83735; 84484; 85025; 93005; 96365; 99284; J3475

== ENCOUNTER → 2021-02-23 | Outpatient (CLI) | payer BC, OTHER ==
[~2021-02-23] MED LIST changes: +DOXY100T27 PO; +MULTTAB20 PO
--- NOTE | 2021-02-23 18:20 | REP ---
INDICATION: RT GROIN PAIN. COMPARISON: None. TECHNIQUE: Real-time and Doppler imaging FINDINGS: No evidence of hernia is noted and no aneurysm or enlarged lymph nodes are appreciated. A comparison image of the left groin shows similar findings. IMPRESSION: Unremarkable examination. <Electronically signed by Ivan Rose > 02/23/21 0729
== END ==
LOC: M RAD 11:37
PROVIDERS: ATTEND Internal Medicine Cardiovascular Disease
DX: R10.31 Right lower quadrant pain (principal)